=== PATIENT | female | born 1970 | race African-American/Black ===

== ENCOUNTER 2017-03-29 08:13 | Day surgery (SDC) | payer MEDICAID ==
[~2017-03-29] VITALS: Ht 165.1 cm; Wt 104.5 kg
[~2017-03-29 08:13] MED LIST: OMEP20 PO; PSEU30TA31 PO; RANI150T7 PO; SODIUM CHLORIDE 0.9% 1,000 ML IV ONE; TRAM50TA4 PO
[2017-03-29] MEDS ORDERED: METF850T2 PO (08:27)
[2017-03-29] MEDS ORDERED: MIDAZOLAM HCL 5 MG/ML VIAL ONE (09:02)
[2017-03-29] MEDS ORDERED: FentaNYL CITRATE-PF 100 MCG/2 ML VIAL ONE (09:02)
[2017-03-29 11:47] LABS: GLUCOSE,POINT OF CARE 89 MG/DL (70-110)
== END 2017-03-29 11:05 | disposition home or self-care (01) ==
LOC: SURGERY 08:13
PROVIDERS: ATTEND Internal Medicine Gastroenterology
DX: K63.5 Polyp of colon (principal); K21.9 Gastro-esophageal reflux disease without esophagitis; E11.9 Type 2 diabetes mellitus without complications; E66.9 Obesity, unspecified; F17.210 Nicotine dependence, cigarettes, uncomplicated; Z72.89 Other problems related to lifestyle; Z88.6 Allergy status to analgesic agent; Z91.013 Allergy to seafood; Z79.82 Long term (current) use of aspirin; Z98.51 Tubal ligation status; Z80.0 Family history of malignant neoplasm of digestive organs; Z80.1 Family history of malignant neoplasm of trachea, bronchus and lung
CPT/HCPCS: 45380; 82962; 88305; 93005; J2250; J3010; J7030